=== PATIENT | female | born 2000 ===

== ENCOUNTER 2020-01-24 08:35 | Outpatient (CLI) | payer OTHER, SELFPAY ==
[2020-01-26 14:49] LABS: SARS-CoV-2 RNA Undetected (Undetected); SARS-CoV-2 Specimen Source Nasopharynx
== END 2020-01-24 08:55 ==
PROVIDERS: Visit Provider Physician Assistant
DX: Z20.828 Contact with and (suspected) exposure to other viral communicable diseases (principal)
CPT/HCPCS: U0003